=== PATIENT | male | born 1960 | race Caucasian/White ===

== ENCOUNTER 2021-03-28 20:49 | Inpatient (IN) | payer BC ==
[~2021-03-28] VITALS: Ht 180.3 cm; Wt 70.1 kg
[2021-03-28] MEDS ORDERED: LORA-269 PO (23:59)
[2021-03-28] MEDS ORDERED: OLAN20TA3 PO (23:59)
[2021-03-29] MEDS ORDERED: acetaminophen 325mg tablet PO PRN ×2
[2021-03-29] MEDS ORDERED: loperamide 2mg capsule PO PRN
[2021-03-29] MEDS ORDERED: magnesium hydroxide 30ml (MOM) UD suspension PO PRN
[2021-03-29] MEDS ORDERED: mag hydrox/Alum hydrox/simeth 30ml oral suspension PO PRN
[2021-03-29] MEDS ORDERED: LORazepam 1 MG tablet PO PRN (00:45)
[2021-03-29 00:58] VITALS: BP 116/79
--- NOTE | 2021-03-29 01:01 | NUR ---
Admission Note: 61 year old male admitted from [facility] for GD, he arrived on the unit at 2345 and was escorted by PCT José Antonio, contraband check completed by José Antonio, skin check completed by myself and Jaun THOMAS, skin was clear. Per pt report and record review: patients co-workers called EMS as pt appeared disorganized, anxious and pacing while at work. He recentl reports little to no sleep for the last 2 weeks, he also reported that he believes the radio is sending him messages and has some voodoo preoccupation. Pt has not been on meds for over a year. Denies S/I or H/I and has never attempted to harm himself in the past.
[2021-03-29 07:30] VITALS: BP 136/86
[2021-03-29 08:11] LABS: HEMOGLOBIN A1C 5.3 % (4.5-6.2)
[2021-03-29 08:37] LABS: CHOL/HDL RATIO 3.4 (0.00-4.99); CHOLESTEROL 175 MG/DL (0-200); HDL CHOLESTEROL 52 MG/DL (35-60); LDL CHOLESTEROL 108 MG/DL (50-100); TRIGLYCERIDES 34 MG/DL (20-135)
[2021-03-29] MEDS ORDERED: FLU VACC QS2021-22(6MOS UP)/PF 60 MCG/0.5 ML SYRINGE IM ONE (10:00)
--- NOTE | 2021-03-29 17:24 | NUR ---
Nursing Progress Note: Legal hold: 5150 Client on involuntary status for GD Report received from nurse Jocelyn CONTRERAS with use of SBAR Why are they here: 61 year old male admitted from [facility] for GD on 03/28/21. Per pt report and record review: patients co-workers called EMS as pt appeared disorganized, anxious and pacing while at work. He recently reports little to no sleep for the last 2 weeks, he also reported that he believes the radio is sending him messages and has some amish preoccupation. Pt has not been on meds for over a year. Denies S/I or H/I and has never attempted to harm himself in the past. Assessment What has happened this shift: Pt was up before breakfast pacing in the taveras. Pt was pleasant and cooperative with assessments. Pt asked if I had any meds for him. Pt educated that he had nothing scheduled this morning however, he did have PRN meds available for anxiety or pain. Pt reports that he doesn't believe he needs to be here and expressed that he felt what his co-workers did was unwarranted. Pt admits to 3 past psych hospitalizations. He reports that the last one was after [place] house [place]. Pt reports that they relocated to a place near [place] and upgraded from 1 acre to 10. This RN asked pt about a prescription he had back in July of this year for Zyprexa. Pt stated that he thinks that was the med his was giving him for awhile to help him sleep. Pt is restless and hyperverbal. Pt refused his flu shot today as he asked if it contained preservatives. This nurse looked up a list of ingredients specific to [place]. Pt refused his flu shot. Pt's called and spoke with the ore charger. His was very upset with the situation and apparent lack of communication from the previous hospital. was yelling at the ore charger. was transferred to [facility]. This RN spoke with the pt and determined that he had not called his to let her know what was happening. Educated pt on the cordless phones and how to use them. Pt called his . S/I, H/I: Pt denies. A/VH: Pt denies. Sleep: Pt slept 1.75 hours last night per noc shift report. ADL's: Independent Group attendance: Yes Were meds taken: None scheduled today. Any med S/E: N/A Mental Status Exam Appearance: Middle aged gentleman of medium stature and brown hair dressed in green unit scrubs, socks, and slides. Eye contact: Good Behavior: Pleasant, cooperative, sociable, restless though calm. Speech: Clear, audible, articulate, hyperverbal Mood: Good Affect: Bright, friendly Thought process: Linear Thought Content: He doesn't need to be here. Cognition: A/O X 4, some minimizing or reality distortion as to situation. Insight: Fair Judgment: Fair Interventions PRN's used: None Therapeutic interventions: 1:1 assessment, therapeutic conversation, active listening, provided education on unit procedures and cordless phone use, provided distraction, direction, positive reinforcement, and Q 15 minute safety checks. Restraints/seclusion/emergency medication: None Justification of Continued Inpatient Treatment: Per report, pt had not been sleeping, was disorganized and acting bizarrely at work. He has a Hx of Bipolar Disorder and has not been on meds for some time. He needs medication management and monitoring in a safe and therapeutic environment until stable.
[2021-03-29 19:45] VITALS: BP 113/65
[2021-03-29] MEDS ORDERED: olanzapine 10mg tablet PO SCH (21:00)
--- NOTE | 2021-03-30 04:17 | NUR ---
Nursing Progress Note: Legal hold: 5150 Client on involuntary status for GD Report received from nurse Bella CONTRERAS with use of SBAR Why are they here: 61 year old male admitted from [facility] for GD on 03/28/21. Per pt report and record review: patients co-workers called EMS as pt appeared disorganized, anxious and pacing while at work. He recently reports little to no sleep for the last 2 weeks, he also reported that he believes the radio is sending him messages and has some hindu preoccupation. Pt has not been on meds for over a year. Denies S/I or H/I and has never attempted to harm himself in the past. Assessment What has happened this shift: Patient social on the unit at the beginning of shift. Pleasant and cooperative with care; compliant with medication. PRN Ativan provided this shift. He denies SI, HI A/VH; possibly responding to IS as he was observed talking while no one else was near. He continued to socialize and participated in HS snack prior to bed; slept better than previous shift but continues to have difficulty. Ativan was somewhat effective but continued to present restless. S/I, H/I: Denies A/VH: Denies Sleep: Refer to sleep assessment ADL's: Independent Group attendance: NA Were meds taken: Yes Any med S/E: None observed or reported Mental Status Exam Appearance: Neat and appropriately dressed in green unit attire Eye contact: Good Behavior: Pleasant, cooperative, sociable, restless though calm Speech: Clear, audible, articulate, hyperverbal Mood: Good Affect: Bright, friendly Thought process: Linear Thought Content: Meeting needs and discharge Cognition: A/O X 4, some minimizing or reality distortion as to situation. Insight: Fair Judgment: Fair Interventions PRN's used: Ativan Therapeutic interventions: 1:1 assessment, therapeutic conversation, active listening, provided education on unit procedures and cordless phone use, provided distraction, direction, positive reinforcement, and Q 15 minute safety checks. Restraints/seclusion/emergency medication: NA Justification of Continued Inpatient Treatment: Per report, pt had not been sleeping, was disorganized and acting bizarrely at work. He has a Hx of Bipolar Disorder and has not been on meds for some time. He needs medication management and monitoring in a safe and therapeutic environment until stable.
[2021-03-30 07:47] VITALS: BP 135/93
--- NOTE | 2021-03-30 09:25 | NUR ---
DISCHARGE PLAN Cj's , Diane, is going to pick up driver Cj around noon today to take him home. He denied any current SI or HI and is not gravely disabled. Setter Machine scheduled follow up with his PCP and a psychiatrist. Diane is aware of the appointments. JONO Gonzalez
[2021-03-30] MEDS ORDERED: OLAN20TA34 PO (11:53)
[2021-03-30] MEDS ORDERED: ATI1T PO (11:53)
--- NOTE | 2021-03-30 12:47 | NUR ---
Discharge Note: Pt. reviewed all paperwork and discharge plan, follow up appts. on 04/21/21 at [address] Brandon Elise, [facility] [address] [place] [address] , Primary Care Provider:Appointment: 04/11/21 at 2 PM with Vernon Singh, [facility] [address] [place] [address] . All paperwork signed and copied. Pt. recieved all his belongings and ambulated off the unit and was met by his family at 1240.
== END 2021-03-30 12:40 | disposition home or self-care (01) | DRG 885 ==
LOC: ADULT MH 23:39
PROVIDERS: ADMIT Psychiatry & Neurology Psychiatry; ATTEND Psychiatry & Neurology Psychiatry
DX: F31.9 Bipolar disorder, unspecified (principal); F43.10 Post-traumatic stress disorder, unspecified; Z82.49 Family history of ischemic heart disease and other diseases of the circulatory system; Z28.21 Immunization not carried out because of patient refusal; Z88.8 Allergy status to other drugs, medicaments and biological substances; Z79.899 Other long term (current) drug therapy
CPT/HCPCS: 36415; 80061; 83036; 87081